=== PATIENT | female | born 1995 | race American Indian/Alaskan Native ===

== ENCOUNTER 2018-10-17 14:48 | Emergency (ER) | payer OTHER ==
--- NOTE | 2018-10-17 15:08 | Emergency Department Report ---
ED Dysuria HPI - HPI Chief Complaint: Urogenital-Female Stated Complaint: LOWER/PELVIC INFLAMMATION Time Seen by Provider: 10/17/18 14:56 Duration: 3 Days Location of Discomfort: Suprapubic Severity: Mild Symptoms: Dysuria: No, Frequency: No, Suprapubic Pain: Yes, Flank Pain: No, Fever: No, Hematuria: No, Abdominal Pain: No, Previous UTI's: No Other History: Patient is a 22-year-old -[place] female who comes to the ER complaining of bilateral lower quadrant pelvic pain and vaginal inflammation. She states that she had thick vaginal discharge she began probiotics and the discharge when away. That's when the pain started. Last menstrual period was 12 1 and she has had a negative test at home. Patient is not concerned for ST eyes. She is on no home medications. She is allergic to sulfa. ED Review of Systems ROS: Stated complaint: LOWER/PELVIC INFLAMMATION Other details as noted in HPI Comment: All other systems reviewed and negative Constitutional: denies: chills Eyes: denies: eye pain ENT: denies: ear pain Respiratory: denies: cough Cardiovascular: denies: dyspnea on exertion Endocrine: denies: flushing Gastrointestinal: as per HPI, abdominal pain. denies: nausea, vomiting Genitourinary: as per HPI. denies: urgency, dysuria, frequency, hematuria, discharge, abnormal menses, dyspareunia Musculoskeletal: denies: back pain Skin: denies: rash Neurological: denies: headache Psychiatric: denies: anxiety Hematological/Lymphatic: denies: easy bleeding ED Past Medical Hx - Past Medical History Previous Medical History?: No - Surgical History Past Surgical History?: No - Social History Smoking Status: Never Smoker Substance Use Type: Alcohol - Medications Home Medications: Home Medications Medication Instructions Recorded Confirmed Last Taken Type Fluconazole [Diflucan TAB] 150 mg PO DAILY #2 tablet 10/17/18 Unknown Rx Dysuria Exam - Exam General: Vital signs noted. No distress. Alert and acting appropriately. Exam: Yes Moist Mucous Membranes, No CVA Tenderness, No Abdominal Tenderness, No Rigidity or Guarding ED Course Vital Signs 10/17/18 14:52 Temperature 99 F Pulse Rate 90 Respiratory 18 Rate Blood Pressure 128/66 O2 Sat by Pulse 100 Oximetry ED Medical Decision Making - Medical Decision Making Labs 10/17/18 10/17/18 Unknown Unknown Urine Color Yellow Urine Turbidity Clear Urine pH 5.0 Ur Specific [place] 1.025 Urine Protein <15 mg/dl Urine Glucose (UA) Neg Urine Ketones Neg Urine Blood Neg Urine Nitrite Neg Urine Bilirubin Neg Urine Urobilinogen < 2.0 Ur Leukocyte Esterase Neg Urine WBC (Auto) < 1.0 Urine RBC (Auto) 1.0 U Epithel Cells (Auto) 1.0 Urine Bacteria (Auto) 1+ Urine Mucus Few Urine HCG, Qual Negative preg neg not concerned for sti reports discharge prior to probiotic as thick curd like will treat with diflucan and follow up with pcp/ob - Differential Diagnosis ro preg/ uti Critical care attestation.: If time is entered above; I have spent that time in minutes in the direct care of this critically ill patient, excluding procedure time. ED Disposition Clinical Impression: Yeast infection Disposition: -01 TO HOME OR SELFCARE Is pt being admited?: No Does the pt Need Aspirin: No Condition: Stable Instructions: Vulvovaginal Candidiasis (ED) Additional Instructions: yogurt daily no female products such as duche' continue probiotic med as ordered today Prescriptions: Fluconazole [Diflucan TAB] 150 mg PO DAILY #2 tablet Referrals: BK NASSAR MD [Staff Physician] - 3-5 Days Time of Disposition: 15:40
[2018-10-17 15:32] LABS: Bacteria,Urine 1+ /HPF (Negative); Bilirubin,Urine NEG (Negative); Blood,Urine NEG (Negative); Color,Urine Yellow (Yellow); HCG Qualitative,Urine Negative (Negative); Mucus,Urine FEW /HPF; Protein,Urine <15 mg/dL mg/dL (Negative); Urobilinogen,Urine < 2.0 mg/dL (<2.0); WBC,Urine < 1.0 /HPF (0.0-6.0)
[2018-10-17 15:41] VITALS: BP 128/66
[2018-10-17] MEDS ORDERED: DIFLUCAN PO ONE (18:00)
== END 2018-10-17 16:48 | disposition home or self-care (01) ==
LOC: ED 14:48
DX: N76.0 Acute vaginitis (principal); B37.9 Candidiasis, unspecified; Z88.2 Allergy status to sulfonamides
CPT/HCPCS: 81001; 81025; 99283